=== PATIENT | female | born 2005 ===

== ENCOUNTER 2024-02-27 12:39 | Inpatient (IN) | payer MEDICAID ==
[~2024-02-27] VITALS: Ht 157.5 cm; Wt 140.9 kg
[2024-02-28] VITALS (67 sets, daily range): BP systolic 100–148; BP diastolic 52–98; PULSE 62–122; TEMP 97.4–98.5
[2024-02-28] MEDS ORDERED: LR & Oxytocin 500 ML IV SCH (06:15)
[2024-02-28] MEDS ORDERED: Penicillin G Potassium 5,000,000 UNITS in NS 100 ML IV ONE (06:15)
[2024-02-28] MEDS ORDERED: Penicillin G Potassium 2,500,000 UNITS in NS 100 ML IV SCH (06:15)
[2024-02-28] MEDS ORDERED: LR 1,000 ML IV SCH (06:15)
[2024-02-28] MEDS ORDERED: PRENATAL (06:48)
[2024-02-28 07:00] LABS: BASO % 0.2 % (0.0-2.0); EOS # 0.1 K/mm3 (0.0-0.7); EOS % 0.4 % (0.0-4.0); GRAN # 10.4 K/mm3 (1.4-6.5); GRAN % 77.4 % (42.2-75.2); HEMOGLOBIN 11.3 g/dl (12.0-15.0); LYMPH # 2.3 K/mm3 (1.2-3.4); LYMPH % 17.1 % (20.0-51.0); MEAN CELL VOLUME 82 fl (80.0-95.0); MEAN CORPUSCULAR HEMOGLOBIN 27 pg (26-32); MEAN CORPUSCULAR HGB CONC 33 g/dl (33.0-37.0); MEAN PLATELET VOLUME 10.5 fl (7.4-10.4); MONO # 0.6 K/mm3 (0.1-0.6); MONO % 4.3 % (1.7-9.3); PLATELET COUNT 315 K/mm3 (130-400); REDCELL DISTRIBUTION WIDTH-CV 13.6 % (11.5-14.5)
[2024-02-28 07:05] LABS: HEMATOCRIT 34.6 % (35.0-45.0)
[2024-02-28 08:56] LABS: TRICYCLIC ANTIDEPRESS URINE NEGATIVE (NEGATIVE)
[2024-02-28] MEDS ORDERED: ROPivacaine PF 0.2% 200 ML IV ONE (10:23)
[2024-02-28] MEDS ORDERED: Naloxone 0.4 MG/ML VIAL IV PRN ×2 (10:30→22:30)
[2024-02-28] MEDS ORDERED: diphenhydrAMINE 50 MG/ML 1 ML VIAL IV PRN (10:30)
[2024-02-28] MEDS ORDERED: diphenhydrAMINE 25 MG CAP PO PRN (10:30)
[2024-02-28] MEDS ORDERED: ePHEDrine 50 MG/10 ML VIAL IV PRN (10:30)
[2024-02-28] MEDS ORDERED: Ondansetron 4 MG/2 ML VIAL IV PRN (10:30)
[2024-02-28 12:50] LABS: TRICYCLIC ANTIDEPRESS URINE NEGATIVE (NEGATIVE)
[2024-02-28] MEDS ORDERED: Chloroprocaine PF 3% (30 MG/ML) 20 ML VIAL ONE (12:57)
[2024-02-28] MEDS ORDERED: traZODone 50 MG TAB PO PRN (21:00)
[2024-02-28] MEDS ORDERED: MOTRIN 800800 MG/TAB PO (22:27)
[2024-02-28] MEDS ORDERED: Witch Hazel 50% Pads Bulk TUB TP PRN (22:30)
[2024-02-28] MEDS ORDERED: Magnes Hydrox (MOM) 80 MG/ML 30 ML CUP PO PRN (22:30)
[2024-02-28] MEDS ORDERED: Phenylephrine/Mineral Oil/Petrolatum 57 GM TUBE RC PRN (22:30)
[2024-02-28] MEDS ORDERED: oxyCODONE 5 MG TAB PO PRN (22:30)
[2024-02-28] MEDS ORDERED: Acetaminophen 500 MG TAB PO PRN (22:30)
[2024-02-28] MEDS ORDERED: Mag/Al Hydrox/Simeth Susp 30 ML CUP PO PRN (22:30)
[2024-02-28] MEDS ORDERED: Loratadine 10 MG TAB PO PRN (22:30)
[2024-02-28] MEDS ORDERED: Measles/Mumps/Rubella Virus Vaccine Live w Diluent 0.5 ML VIAL SQ SCH (22:30)
[2024-02-28] MEDS ORDERED: Ibuprofen 800 MG TAB PO SCH (22:30)
[2024-02-29] VITALS (7 sets, daily range): BP systolic 102–133; BP diastolic 50–74; PULSE 62–98; TEMP 97.8–98
[2024-02-29] MEDS ORDERED: Sennosides/Docusate 8.6-50 MG TAB PO SCH (08:00)
[2024-03-01 08:30] VITALS: BP 117/72; PULSE 76; TEMP 98.1
[2024-03-01 17:00] VITALS: BP 130/81; PULSE 81; TEMP 98.5
[2024-03-01 18:01] LABS: TRICYCLIC ANTIDEPRESS URINE NEGATIVE (NEGATIVE)
== END 2024-03-01 20:30 | disposition home or self-care (01) | DRG 807 ==
LOC: LDR 02-28 05:50 → OB 02-28 12:39
PROVIDERS: Pediatrics; ADMIT Obstetrics & Gynecology
PROC: 10E0XZZ Delivery of Products of Conception, External Approach (ICD-10-PCS; principal; 2024-02-28)
PROC: 0HQ9XZZ Repair Perineum Skin, External Approach (ICD-10-PCS; 2024-02-28)
PROC: 10907ZC Drainage of Amniotic Fluid, Therapeutic from Products of Conception, Via Natural or Artificial Opening (ICD-10-PCS; 2024-02-28)
PROC: 3E033VJ Introduction of Other Hormone into Peripheral Vein, Percutaneous Approach (ICD-10-PCS; 2024-02-28)
DX: O48.0 Post-term pregnancy (principal); Z37.0 Single live birth; O70.0 First degree perineal laceration during delivery; O66.0 Obstructed labor due to shoulder dystocia; O32.6XX0 Maternal care for compound presentation, not applicable or unspecified; O99.824 Streptococcus B carrier state complicating childbirth; O99.214 Obesity complicating childbirth; Z3A.40 40 weeks gestation of pregnancy
CPT/HCPCS: J0665; J2401; J2405; J2540; J2590; J2795; J7120